=== PATIENT | female | born 1945 | race Caucasian/White ===

== ENCOUNTER 2022-03-28 13:40 | Day surgery (SDC) | payer MEDICARE ==
[~2022-03-28] VITALS: Ht 162.6 cm; Wt 64.4 kg
[2022-03-28 15:28] LABS: Creatinine, Blood 0.76 mg/dL (0.40-1.00); Vancomycin, Trough 7.2 ug/mL (5.0-10.0)
[2022-03-28] MEDS ORDERED: VANCOMYCIN HCL1 G1 IV (17:30)
== END 2022-03-28 17:53 | disposition home or self-care (01) ==
LOC: ATC 13:40
PROVIDERS: Internal Medicine Infectious Disease
DX: T84.54XA Infection and inflammatory reaction due to internal left knee prosthesis, initial encounter (principal); M25.462 Effusion, left knee; T84.84XA Pain due to internal orthopedic prosthetic devices, implants and grafts, initial encounter; M81.0 Age-related osteoporosis without current pathological fracture; Z88.1 Allergy status to other antibiotic agents; Z88.8 Allergy status to other drugs, medicaments and biological substances
CPT/HCPCS: 80202; 82565; J3370; J7050

== ENCOUNTER 2022-03-29 07:51 | Day surgery (SDC) | payer MEDICARE ==
[~2022-03-29 07:51] MED LIST: VANCOMYCIN HCL1 G1 IV
== END 2022-03-29 15:41 | disposition home or self-care (01) ==
LOC: ATC 07:51
DX: T84.54XA Infection and inflammatory reaction due to internal left knee prosthesis, initial encounter (principal); Y79.8 Miscellaneous orthopedic devices associated with adverse incidents, not elsewhere classified; Z88.1 Allergy status to other antibiotic agents; Z88.8 Allergy status to other drugs, medicaments and biological substances; Z91.040 Latex allergy status; Z79.899 Other long term (current) drug therapy
CPT/HCPCS: J0878; J3370; J7050

== ENCOUNTER 2022-04-03 01:05 | Day surgery (SDC) | payer MEDICARE, OTHER ==
[~2022-04-03 01:05] MED LIST changes: +CUBICIN RF500 M1 IV
== END 2022-04-03 14:03 | disposition home or self-care (01) ==
LOC: ATC 01:05
DX: T84.54XA Infection and inflammatory reaction due to internal left knee prosthesis, initial encounter (principal); F41.9 Anxiety disorder, unspecified; F32.A Depression, unspecified; M81.0 Age-related osteoporosis without current pathological fracture; Z85.3 Personal history of malignant neoplasm of breast
CPT/HCPCS: 96365; J0878

== ENCOUNTER 2022-04-04 00:08 | Day surgery (SDC) | payer MEDICARE, OTHER | END 2022-04-04 13:59 | disposition home or self-care (01) | LOC: ATC 00:08 | DX: T84.54XA Infection and inflammatory reaction due to internal left knee prosthesis, initial encounter (principal); F41.9 Anxiety disorder, unspecified; F32.A Depression, unspecified; Z85.3 Personal history of malignant neoplasm of breast | CPT/HCPCS: 96365; J0878 ==

== ENCOUNTER 2022-04-08 01:47 | Day surgery (SDC) | payer MEDICARE, OTHER | END 2022-04-08 10:44 | disposition home or self-care (01) | LOC: ATC 01:47 | DX: T84.54XA Infection and inflammatory reaction due to internal left knee prosthesis, initial encounter (principal); F41.9 Anxiety disorder, unspecified; F32.A Depression, unspecified; Z85.3 Personal history of malignant neoplasm of breast | CPT/HCPCS: 96365; J0878 ==

== ENCOUNTER 2022-04-09 01:55 | Day surgery (SDC) | payer MEDICARE, OTHER ==
[2022-04-09 15:11] LABS: BASOPHILS PERCENT AUTO 1 % (0-2); EOSINOPHILS ABSOLUTE AUTO 0.28 K/mm3 (0.00-0.68); EOSINOPHILS PERCENT AUTO 3 % (0-6); Hematocrit 36.3 % (33.0-51.0); Hemoglobin 11.9 g/dL (11.5-16.0); IMMATURE GRAN ABSOLUTE AUTO 0.03 K/mm3 (0.00-0.10); IMMATURE GRAN PERCENT AUTO 0 % (0-1); LYMPHOCYTES ABSOLUTE AUTO 1.58 K/mm3 (0.84-5.20); LYMPHOCYTES PERCENT AUTO 16 % (21-46); MONOCYTES ABSOLUTE AUTO 0.54 K/mm3 (0.16-1.47); MONOCYTES PERCENT AUTO 5 % (4-13); Mean Corpuscular HGB 29.1 pg (26.0-34.0); Mean Corpuscular HGB Conc 32.8 g/dL (31.5-36.5); Mean Corpuscular Volume 89 fL (80-100); Mean Platelet Volume 9.5 fL (9.1-12.4); NEUTROPHILS ABSOLUTE AUTO 7.42 K/mm3 (1.96-9.15); NEUTROPHILS PERCENT AUTO 75 % (41-73); Platelet Count 379 K/mm3 (150-400); RDW Coefficient Variation 12.5 % (11.7-14.2); RDW Standard Deviation 40.7 fL (35.1-46.3); Red Blood Cell Count 4.09 M/mm3 (3.80-5.20); White Blood Cell Count 9.95 K/mm3 (4.00-11.30)
== END 2022-04-09 14:40 | disposition home or self-care (01) ==
LOC: ATC 01:55
PROVIDERS: Internal Medicine Infectious Disease
DX: T84.54XA Infection and inflammatory reaction due to internal left knee prosthesis, initial encounter (principal)
CPT/HCPCS: 85025; 85651; 86140; 96365; J0878

== ENCOUNTER 2022-04-10 02:07 | Day surgery (SDC) | payer MEDICARE | END 2022-04-10 14:03 | disposition home or self-care (01) | LOC: ATC 02:07 | DX: T84.54XA Infection and inflammatory reaction due to internal left knee prosthesis, initial encounter (principal); Y79.8 Miscellaneous orthopedic devices associated with adverse incidents, not elsewhere classified; Z88.1 Allergy status to other antibiotic agents; Z88.8 Allergy status to other drugs, medicaments and biological substances; Z79.899 Other long term (current) drug therapy; Z20.822 Contact with and (suspected) exposure to COVID-19 | CPT/HCPCS: 96365; J0878 ==

== ENCOUNTER 2022-04-11 02:08 | Day surgery (SDC) | payer MEDICARE | END 2022-04-11 14:10 | disposition home or self-care (01) | LOC: ATC 02:08 | DX: T84.54XA Infection and inflammatory reaction due to internal left knee prosthesis, initial encounter (principal); Z96.652 Presence of left artificial knee joint; Z88.1 Allergy status to other antibiotic agents; Z88.8 Allergy status to other drugs, medicaments and biological substances; Z91.040 Latex allergy status; Z87.891 Personal history of nicotine dependence | CPT/HCPCS: 96374; J0878 ==

== ENCOUNTER 2022-04-12 02:20 | Day surgery (SDC) | payer MEDICARE | END 2022-04-12 14:15 | disposition home or self-care (01) | LOC: ATC 02:20 | DX: T84.54XA Infection and inflammatory reaction due to internal left knee prosthesis, initial encounter (principal); Y79.8 Miscellaneous orthopedic devices associated with adverse incidents, not elsewhere classified; Z88.1 Allergy status to other antibiotic agents; Z91.040 Latex allergy status; Z79.82 Long term (current) use of aspirin; Z79.899 Other long term (current) drug therapy; Z20.822 Contact with and (suspected) exposure to COVID-19 | CPT/HCPCS: 96365; J0878 ==

== ENCOUNTER 2022-04-14 00:24 | Day surgery (SDC) | payer MEDICARE | END 2022-04-14 14:20 | disposition home or self-care (01) | LOC: ATC 00:24 | DX: T84.54XA Infection and inflammatory reaction due to internal left knee prosthesis, initial encounter (principal); Y79.8 Miscellaneous orthopedic devices associated with adverse incidents, not elsewhere classified; Z88.1 Allergy status to other antibiotic agents; Z91.040 Latex allergy status; Z79.82 Long term (current) use of aspirin; Z79.899 Other long term (current) drug therapy | CPT/HCPCS: J0878 ==

== ENCOUNTER 2022-04-15 02:16 | Day surgery (SDC) | payer MEDICARE | END 2022-04-15 11:50 | disposition home or self-care (01) | LOC: ATC 02:16 | DX: T84.54XA Infection and inflammatory reaction due to internal left knee prosthesis, initial encounter (principal); Y79.2 Prosthetic and other implants, materials and accessory orthopedic devices associated with adverse incidents; Z87.891 Personal history of nicotine dependence; Z96.652 Presence of left artificial knee joint; Z88.1 Allergy status to other antibiotic agents; Z88.8 Allergy status to other drugs, medicaments and biological substances; Z91.040 Latex allergy status | CPT/HCPCS: J0878 ==

== ENCOUNTER 2022-04-16 00:10 | Day surgery (SDC) | payer MEDICARE ==
[2022-04-16 14:15] LABS: BASOPHILS PERCENT AUTO 1 % (0-2); EOSINOPHILS ABSOLUTE AUTO 0.27 K/mm3 (0.00-0.68); EOSINOPHILS PERCENT AUTO 2 % (0-6); Hematocrit 36.1 % (33.0-51.0); IMMATURE GRAN ABSOLUTE AUTO 0.06 K/mm3 (0.00-0.10); IMMATURE GRAN PERCENT AUTO 1 % (0-1); LYMPHOCYTES ABSOLUTE AUTO 1.61 K/mm3 (0.84-5.20); LYMPHOCYTES PERCENT AUTO 13 % (21-46); MONOCYTES ABSOLUTE AUTO 0.67 K/mm3 (0.16-1.47); MONOCYTES PERCENT AUTO 5 % (4-13); Mean Corpuscular HGB Conc 33.2 g/dL (31.5-36.5); Mean Corpuscular Volume 87 fL (80-100); Mean Platelet Volume 9.5 fL (9.1-12.4); NEUTROPHILS ABSOLUTE AUTO 9.79 K/mm3 (1.96-9.15); NEUTROPHILS PERCENT AUTO 78 % (41-73); Platelet Count 370 K/mm3 (150-400); RDW Coefficient Variation 12.6 % (11.7-14.2); Red Blood Cell Count 4.14 M/mm3 (3.80-5.20)
[2022-04-16 14:37] LABS: Albumin, Blood 3.6 g/dL (3.4-5.0); Albumin/Globulin Ratio 1.1 (0.8-1.8); Bilirubin, Total 0.5 mg/dL (0.1-1.0); C-REACTIVE PROTEIN, EXT RANGE 0.526 mg/dL (0.000-0.300); Calcium, Blood 9.2 mg/dL (8.5-10.1); Creatinine, Blood 0.84 mg/dL (0.40-1.00); Globulin, Blood 3.3 g/dL (2.2-4.0); Potassium, Blood 4.5 mmol/L (3.5-5.5); Total Protein, Blood 6.9 g/dL (6.4-8.2)
[2022-04-17] MEDS ORDERED: DIPHEN12.5 MG/1 PO (14:37)
== END 2022-04-16 14:15 | disposition home or self-care (01) ==
LOC: ATC 00:10
PROVIDERS: Internal Medicine Infectious Disease
DX: T84.54XA Infection and inflammatory reaction due to internal left knee prosthesis, initial encounter (principal); Y79.8 Miscellaneous orthopedic devices associated with adverse incidents, not elsewhere classified; Z88.1 Allergy status to other antibiotic agents; Z91.040 Latex allergy status; Z79.82 Long term (current) use of aspirin; Z79.899 Other long term (current) drug therapy; Z20.822 Contact with and (suspected) exposure to COVID-19
CPT/HCPCS: 80053; 85025; 85651; 86140; J0878

== ENCOUNTER 2022-04-17 02:50 | Day surgery (SDC) | payer MEDICARE ==
[2022-04-17] MEDS ORDERED: DIPHEN12.5 MG/1 PO (14:37)
== END 2022-04-17 14:06 | disposition home or self-care (01) ==
LOC: ATC 02:50
DX: T84.54XA Infection and inflammatory reaction due to internal left knee prosthesis, initial encounter (principal); Z96.652 Presence of left artificial knee joint; Z88.1 Allergy status to other antibiotic agents; Z88.8 Allergy status to other drugs, medicaments and biological substances; Z91.040 Latex allergy status; Z87.891 Personal history of nicotine dependence
CPT/HCPCS: J0878

== ENCOUNTER 2022-04-18 00:56 | Day surgery (SDC) | payer MEDICARE ==
[~2022-04-18 00:56] MED LIST changes: +DIPHEN12.5 MG/1 PO
== END 2022-04-18 14:14 | disposition home or self-care (01) ==
LOC: ATC 00:56
DX: T84.54XA Infection and inflammatory reaction due to internal left knee prosthesis, initial encounter (principal); Y79.8 Miscellaneous orthopedic devices associated with adverse incidents, not elsewhere classified; Z88.1 Allergy status to other antibiotic agents; Z91.040 Latex allergy status; Z79.82 Long term (current) use of aspirin; Z79.899 Other long term (current) drug therapy; Z20.822 Contact with and (suspected) exposure to COVID-19
CPT/HCPCS: J0878

== ENCOUNTER 2022-04-19 00:16 | Day surgery (SDC) | payer MEDICARE | END 2022-04-19 14:12 | disposition home or self-care (01) | LOC: ATC 00:16 | DX: T84.54XA Infection and inflammatory reaction due to internal left knee prosthesis, initial encounter (principal); Y79.2 Prosthetic and other implants, materials and accessory orthopedic devices associated with adverse incidents; Z96.652 Presence of left artificial knee joint; Z88.1 Allergy status to other antibiotic agents; Z88.8 Allergy status to other drugs, medicaments and biological substances; Z91.040 Latex allergy status | CPT/HCPCS: J0878 ==

== ENCOUNTER 2022-04-20 01:24 | Day surgery (SDC) | payer MEDICARE | END 2022-04-20 14:14 | disposition home or self-care (01) | LOC: ATC 01:24 | DX: T84.54XA Infection and inflammatory reaction due to internal left knee prosthesis, initial encounter (principal); Z85.3 Personal history of malignant neoplasm of breast; F41.9 Anxiety disorder, unspecified | CPT/HCPCS: J0878 ==

== ENCOUNTER 2022-04-21 01:59 | Day surgery (SDC) | payer MEDICARE | END 2022-04-21 14:45 | disposition home or self-care (01) | LOC: ATC 01:59 | DX: T84.54XA Infection and inflammatory reaction due to internal left knee prosthesis, initial encounter (principal); Z96.652 Presence of left artificial knee joint; Z88.1 Allergy status to other antibiotic agents; Z88.8 Allergy status to other drugs, medicaments and biological substances; Z91.040 Latex allergy status; Z87.891 Personal history of nicotine dependence | CPT/HCPCS: J0878 ==

== ENCOUNTER 2022-04-23 04:04 | Day surgery (SDC) | payer MEDICARE ==
--- NOTE | 2022-04-23 15:34 | NUR ---
UNABLE TO DRAW LABS FROM PICC LINE TODAY. PICC LINE HAD BLOOD RETURN BUT TOO SLUGGISH FOR GOOD SAMPLE. SAMPLE TAKEN VIA 21 GAUGE BUTTERFLY NEEDLE TO RIGHT HAND PER PROTOCOL
[2022-04-23 15:41] LABS: BASOPHILS ABSOLUTE AUTO 0.09 K/mm3 (0.00-0.23); BASOPHILS PERCENT AUTO 1 % (0-2); EOSINOPHILS ABSOLUTE AUTO 0.41 K/mm3 (0.00-0.68); EOSINOPHILS PERCENT AUTO 4 % (0-6); Hematocrit 37.7 % (33.0-51.0); Hemoglobin 12.4 g/dL (11.5-16.0); IMMATURE GRAN ABSOLUTE AUTO 0.03 K/mm3 (0.00-0.10); IMMATURE GRAN PERCENT AUTO 0 % (0-1); LYMPHOCYTES ABSOLUTE AUTO 2.06 K/mm3 (0.84-5.20); LYMPHOCYTES PERCENT AUTO 20 % (21-46); MONOCYTES ABSOLUTE AUTO 0.55 K/mm3 (0.16-1.47); MONOCYTES PERCENT AUTO 5 % (4-13); Mean Corpuscular HGB Conc 32.9 g/dL (31.5-36.5); Mean Corpuscular Volume 88 fL (80-100); Mean Platelet Volume 9.9 fL (9.1-12.4); NEUTROPHILS ABSOLUTE AUTO 7.07 K/mm3 (1.96-9.15); NEUTROPHILS PERCENT AUTO 69 % (41-73); Platelet Count 325 K/mm3 (150-400); RDW Coefficient Variation 12.5 % (11.7-14.2); RDW Standard Deviation 40.3 fL (35.1-46.3); Red Blood Cell Count 4.27 M/mm3 (3.80-5.20); White Blood Cell Count 10.21 K/mm3 (4.00-11.30)
[2022-04-23 16:05] LABS: C-REACTIVE PROTEIN, EXT RANGE <0.290 mg/dL (0.000-0.300); CPK Creatine Kinase 102 U/L (26-193)
[2022-04-23 16:10] LABS: Alanine Aminotransfer (ALT/SGP 25 U/L (12-78); Albumin, Blood 3.4 g/dL (3.4-5.0); Alk Phos 97 U/L (50-136); Anion Gap 6 mmol/L (6-16); Aspartate Aminotrans (AST/SGOT 23 U/L (12-37); Bilirubin, Total 0.4 mg/dL (0.1-1.0); Blood Urea Nitrogen 22 mg/dL (8-24); CO2, Blood 28 mmol/L (21-32); Calcium, Blood 8.9 mg/dL (8.5-10.1); Chloride, Blood 106 mmol/L (98-108); Creatine Kinase MB <1.0 ng/mL (0.0-3.6); Creatine Kinase MB Index Unable to Calculate (0.0-4.0); Creatinine, Blood 0.76 mg/dL (0.40-1.00); Globulin, Blood 3.3 g/dL (2.2-4.0); Glomerular Filtration Rate 82 (60-); Glucose, Blood 79 mg/dL (70-99); Potassium, Blood 3.9 mmol/L (3.5-5.5); Sodium, Blood 140 mmol/L (136-145); Total Protein, Blood 6.7 g/dL (6.4-8.2)
== END 2022-04-23 15:00 | disposition home or self-care (01) ==
LOC: ATC 04:04
PROVIDERS: Internal Medicine Infectious Disease
DX: T84.54XA Infection and inflammatory reaction due to internal left knee prosthesis, initial encounter (principal); Y79.2 Prosthetic and other implants, materials and accessory orthopedic devices associated with adverse incidents; Z88.1 Allergy status to other antibiotic agents; Z88.8 Allergy status to other drugs, medicaments and biological substances; Z91.040 Latex allergy status
CPT/HCPCS: 80053; 82550; 82553; 85025; 85651; 86140; J0878

== ENCOUNTER 2022-04-24 03:33 | Day surgery (SDC) | payer MEDICARE | END 2022-04-24 14:44 | disposition home or self-care (01) | LOC: ATC 03:33 | DX: T84.54XA Infection and inflammatory reaction due to internal left knee prosthesis, initial encounter (principal); Z85.3 Personal history of malignant neoplasm of breast | CPT/HCPCS: J0878 ==

== ENCOUNTER 2022-04-25 00:09 | Day surgery (SDC) | payer MEDICARE | END 2022-04-25 14:22 | disposition home or self-care (01) | LOC: ATC 00:09 | DX: T84.54XA Infection and inflammatory reaction due to internal left knee prosthesis, initial encounter (principal); F41.9 Anxiety disorder, unspecified; F32.A Depression, unspecified | CPT/HCPCS: J0878 ==

== ENCOUNTER 2022-04-26 02:07 | Day surgery (SDC) | payer MEDICARE | END 2022-04-26 14:31 | disposition home or self-care (01) | LOC: ATC 02:07 | DX: T84.54XA Infection and inflammatory reaction due to internal left knee prosthesis, initial encounter (principal); Y79.8 Miscellaneous orthopedic devices associated with adverse incidents, not elsewhere classified; Z88.1 Allergy status to other antibiotic agents; Z91.040 Latex allergy status; Z79.82 Long term (current) use of aspirin; Z79.899 Other long term (current) drug therapy; Z20.822 Contact with and (suspected) exposure to COVID-19 | CPT/HCPCS: J0878 ==

== ENCOUNTER 2022-04-27 02:52 | Day surgery (SDC) | payer MEDICARE, OTHER | END 2022-04-27 14:39 | disposition home or self-care (01) | LOC: ATC 02:52 | DX: T84.54XA Infection and inflammatory reaction due to internal left knee prosthesis, initial encounter (principal) | CPT/HCPCS: 96365; J0878 ==

== ENCOUNTER 2022-04-28 02:44 | Day surgery (SDC) | payer MEDICARE | END 2022-04-28 14:26 | disposition home or self-care (01) | LOC: ATC 02:44 | DX: T84.54XA Infection and inflammatory reaction due to internal left knee prosthesis, initial encounter (principal); Y79.2 Prosthetic and other implants, materials and accessory orthopedic devices associated with adverse incidents | CPT/HCPCS: J0878 ==

== ENCOUNTER 2022-04-29 02:18 | Day surgery (SDC) | payer MEDICARE | END 2022-04-29 15:05 | disposition home or self-care (01) | LOC: ATC 02:18 | DX: T84.54XA Infection and inflammatory reaction due to internal left knee prosthesis, initial encounter (principal); Y79.2 Prosthetic and other implants, materials and accessory orthopedic devices associated with adverse incidents; Z88.1 Allergy status to other antibiotic agents; Z88.8 Allergy status to other drugs, medicaments and biological substances; Z91.040 Latex allergy status | CPT/HCPCS: J0878 ==

== ENCOUNTER 2022-04-30 01:30 | Day surgery (SDC) | payer MEDICARE ==
[2022-04-30 15:04] LABS: BASOPHILS ABSOLUTE AUTO 0.06 K/mm3 (0.00-0.23); BASOPHILS PERCENT AUTO 1 % (0-2); EOSINOPHILS ABSOLUTE AUTO 0.24 K/mm3 (0.00-0.68); EOSINOPHILS PERCENT AUTO 3 % (0-6); Hematocrit 35.6 % (33.0-51.0); Hemoglobin 11.9 g/dL (11.5-16.0); IMMATURE GRAN ABSOLUTE AUTO 0.03 K/mm3 (0.00-0.10); IMMATURE GRAN PERCENT AUTO 0 % (0-1); LYMPHOCYTES ABSOLUTE AUTO 1.79 K/mm3 (0.84-5.20); LYMPHOCYTES PERCENT AUTO 21 % (21-46); MONOCYTES ABSOLUTE AUTO 0.48 K/mm3 (0.16-1.47); MONOCYTES PERCENT AUTO 6 % (4-13); Mean Corpuscular HGB 29.5 pg (26.0-34.0); Mean Corpuscular HGB Conc 33.4 g/dL (31.5-36.5); Mean Corpuscular Volume 88 fL (80-100); Mean Platelet Volume 9.6 fL (9.1-12.4); NEUTROPHILS ABSOLUTE AUTO 6.12 K/mm3 (1.96-9.15); NEUTROPHILS PERCENT AUTO 70 % (41-73); Platelet Count 286 K/mm3 (150-400); RDW Coefficient Variation 12.3 % (11.7-14.2); RDW Standard Deviation 40.2 fL (35.1-46.3); Red Blood Cell Count 4.04 M/mm3 (3.80-5.20); White Blood Cell Count 8.72 K/mm3 (4.00-11.30)
[2022-04-30 15:22] LABS: C-REACTIVE PROTEIN, EXT RANGE <0.290 mg/dL (0.000-0.300)
[2022-04-30 15:27] LABS: CPK Creatine Kinase 181 U/L (26-193)
[2022-04-30 15:32] LABS: Alanine Aminotransfer (ALT/SGP 21 U/L (12-78); Albumin, Blood 3.5 g/dL (3.4-5.0); Albumin/Globulin Ratio 1.2 (0.8-1.8); Alk Phos 84 U/L (50-136); Anion Gap 3 mmol/L (6-16); Aspartate Aminotrans (AST/SGOT 25 U/L (12-37); Bilirubin, Total 0.4 mg/dL (0.1-1.0); Blood Urea Nitrogen 19 mg/dL (8-24); Bun/Creatinine Ratio 21.6 (12.0-20.0); CO2, Blood 27 mmol/L (21-32); Calcium, Blood 9.1 mg/dL (8.5-10.1); Chloride, Blood 106 mmol/L (98-108); Creatine Kinase MB 2.2 ng/mL (0.0-3.6); Creatine Kinase MB Index 1.2 (0.0-4.0); Creatinine, Blood 0.88 mg/dL (0.40-1.00); Glomerular Filtration Rate 68 (60-); Glucose, Blood 119 mg/dL (70-99); Sodium, Blood 136 mmol/L (136-145); Total Protein, Blood 6.5 g/dL (6.4-8.2)
--- NOTE | 2022-04-30 15:34 | NUR ---
LAB RESULTS FAXED TO DR SPANGLER
== END 2022-04-30 14:49 | disposition home or self-care (01) ==
LOC: ATC 01:30
PROVIDERS: Internal Medicine Infectious Disease
DX: T84.54XA Infection and inflammatory reaction due to internal left knee prosthesis, initial encounter (principal); Z88.8 Allergy status to other drugs, medicaments and biological substances; Z91.040 Latex allergy status
CPT/HCPCS: 80053; 82550; 82553; 85025; 85651; 86140; J0878

== ENCOUNTER 2022-05-01 00:25 | Day surgery (SDC) | payer MEDICARE | END 2022-05-01 14:24 | disposition home or self-care (01) | LOC: ATC 00:25 | DX: T84.54XA Infection and inflammatory reaction due to internal left knee prosthesis, initial encounter (principal); Y79.2 Prosthetic and other implants, materials and accessory orthopedic devices associated with adverse incidents | CPT/HCPCS: J0878 ==

== ENCOUNTER 2022-05-02 00:14 | Day surgery (SDC) | payer MEDICARE | END 2022-05-02 09:20 | disposition home or self-care (01) | LOC: ATC 00:14 | DX: T84.54XA Infection and inflammatory reaction due to internal left knee prosthesis, initial encounter (principal); Y79.8 Miscellaneous orthopedic devices associated with adverse incidents, not elsewhere classified; Z88.1 Allergy status to other antibiotic agents; Z79.82 Long term (current) use of aspirin; Z79.899 Other long term (current) drug therapy; Z20.822 Contact with and (suspected) exposure to COVID-19 | CPT/HCPCS: J0878 ==

== ENCOUNTER 2022-05-05 01:32 | Day surgery (SDC) | payer MEDICARE | END 2022-05-05 14:50 | disposition home or self-care (01) | LOC: ATC 01:32 | DX: T84.54XA Infection and inflammatory reaction due to internal left knee prosthesis, initial encounter (principal); F41.9 Anxiety disorder, unspecified; F32.A Depression, unspecified | CPT/HCPCS: 96365; J0878 ==

== ENCOUNTER 2022-05-06 02:24 | Day surgery (SDC) | payer MEDICARE | END 2022-05-06 09:34 | disposition home or self-care (01) | LOC: ATC 02:24 | DX: T84.54XA Infection and inflammatory reaction due to internal left knee prosthesis, initial encounter (principal); F41.9 Anxiety disorder, unspecified; F32.A Depression, unspecified | CPT/HCPCS: 96365; J0878 ==

== ENCOUNTER → 2023-11-08 | Outpatient (CLI) | payer OTHER ==
[2023-11-08 19:44] LABS: BASOPHILS ABSOLUTE AUTO 0.06 K/mm3 (0.00-0.23); BASOPHILS PERCENT AUTO 1 % (0-2); EOSINOPHILS ABSOLUTE AUTO 0.13 K/mm3 (0.00-0.68); EOSINOPHILS PERCENT AUTO 2 % (0-6); Hemoglobin 14.7 g/dL (11.5-16.0); IMMATURE GRAN ABSOLUTE AUTO 0.02 K/mm3 (0.00-0.10); IMMATURE GRAN PERCENT AUTO 0 % (0-1); LYMPHOCYTES ABSOLUTE AUTO 1.89 K/mm3 (0.84-5.20); LYMPHOCYTES PERCENT AUTO 26 % (21-46); MONOCYTES PERCENT AUTO 8 % (4-13); Mean Corpuscular HGB 29.1 pg (26.0-34.0); Mean Corpuscular HGB Conc 33.4 g/dL (31.5-36.5); Mean Corpuscular Volume 87 fL (80-100); Mean Platelet Volume 10.2 fL (9.1-12.4); NEUTROPHILS ABSOLUTE AUTO 4.48 K/mm3 (1.96-9.15); NEUTROPHILS PERCENT AUTO 62 % (41-73); Platelet Count 269 K/mm3 (150-400); RDW Coefficient Variation 11.9 % (11.7-14.2); RDW Standard Deviation 37.7 fL (35.1-46.3); Red Blood Cell Count 5.05 M/mm3 (3.80-5.20); White Blood Cell Count 7.18 K/mm3 (4.00-11.30)
[2023-11-08 20:49] LABS: Alanine Aminotransfer (ALT/SGP 28 U/L (12-78); Albumin, Blood 3.9 g/dL (3.4-5.0); Albumin/Globulin Ratio 1.1 (0.8-1.8); Alk Phos 98 U/L (50-136); Anion Gap 6 mmol/L (3-11); Aspartate Aminotrans (AST/SGOT 25 U/L (12-37); Bilirubin, Total 0.4 mg/dL (0.1-1.0); Blood Urea Nitrogen 16 mg/dL (8-24); Bun/Creatinine Ratio 22.6 (12.0-20.0); CHOL/HDL RATIO 2.5; CO2, Blood 31 mmol/L (21-32); Calcium, Blood 9.6 mg/dL (8.5-10.1); Chloride, Blood 107 mmol/L (98-108); Cholesterol 206 mg/dL (50-200); Creatinine, Blood 0.71 mg/dL (0.40-1.00); Globulin, Blood 3.4 g/dL (2.2-4.0); Glomerular Filtration Rate 88 (60-); Glucose, Blood 86 mg/dL (70-99); HDL Cholesterol 83 mg/dL (>39); LDL/HDL RATIO 1.2; Low Density Lipoprotein Chol 97 mg/dL (0-110); Potassium, Blood 4.8 mmol/L (3.5-5.5); Sodium, Blood 139 mmol/L (136-145); Total Protein, Blood 7.3 g/dL (6.4-8.2); Triglycerides 132 mg/dL (30-160); Very Low Density Lipoprot Chol 26 mg/dL (6-32)
== END | disposition home or self-care (01) ==
LOC: LAB SHORT 16:55
PROVIDERS: Family Medicine
DX: Z00.01 Encounter for general adult medical examination with abnormal findings (principal); Z13.6 Encounter for screening for cardiovascular disorders; G47.00 Insomnia, unspecified
CPT/HCPCS: 80053; 80061; 84443; 85025

== ENCOUNTER → 2024-06-14 | Outpatient (CLI) | payer OTHER ==
[2024-06-14 19:33] LABS: Creatinine, Urine Random 31.5 mg/dL (27.00-270.00); Protein, Urine Random 6.9 mg/dL (0.0-11.9); Protein/Creat Ratio, Ur Random 0.2
== END | disposition home or self-care (01) ==
LOC: LAB 17:05 → LAB SHORT 17:05
PROVIDERS: Family Medicine
DX: I10 Essential (primary) hypertension (principal)
CPT/HCPCS: 82570; 84156

== ENCOUNTER → 2025-01-15 | Outpatient (CLI) | payer OTHER | LOC: LAB SHORT 16:24 → LAB 16:24 | DX: M81.0 Age-related osteoporosis without current pathological fracture (principal) | CPT/HCPCS: 82306 ==